=== PATIENT | female | born 1955 | race Caucasian/White ===

== ENCOUNTER → 2017-12-02 08:10 | Outpatient (CLI) | payer OTHER, SELFPAY ==
[2017-12-02 10:51] LABS: Anion Gap 10 (5-15); BUN 14 mg/dL (7-18); BUN/Creat Ratio 21.1 RATIO (10-20); Calcium,Total 8.9 mg/dL (8.5-10.1); Chloride 105 mmol/L (98-107); Cholesterol 187 mg/dL (200); Creatinine, Serum 0.66 mg/dL (0.55-1.02); EST Glomerular Filtration Rate 95 mL/min (>60); Est Glom Filt Rate - Afr Amer 115 mL/min (>60); Glucose 95 mg/dL (74-106); High Density Lipoprotein 52 mg/dL; Potassium 4.2 mmol/L (3.5-5.1); Sodium Level 140 mmol/L (136-145); Triglycerides 97 mg/dL; Very Low Density Lipoprotein 19 mg/dL (5-40)
[2017-12-02 12:30] LABS: Vitamin D,25 Hydroxy 18.2 ng/mL (29.95-100.01)
== END ==
PROVIDERS: Family Provider Family Medicine; PCP Family Medicine; Visit Provider Nurse Practitioner Adult Health
DX: E55.9 Vitamin D deficiency, unspecified (principal); Z13.220 Encounter for screening for lipoid disorders; Z13.1 Encounter for screening for diabetes mellitus
CPT/HCPCS: 36415; 80048; 80061; 82306

== ENCOUNTER → 2017-12-08 17:00 | Outpatient (CLI) | payer OTHER, SELFPAY ==
--- NOTE | 2017-12-08 16:45 | BI_ITS ---
MAMMOGRAPHY - BILATERAL SCREENING REASON FOR EXAM: Female, 62 years old. Routine annual screening examination. PERTINENT HISTORY: Non-contributory. TECHNIQUE: Digital bilateral breast segun (3D mammographic acquisition) in the CC and MLO projections. 2-D mediolateral oblique (MLO) and craniocaudad (CC) views of both breasts were obtained. CAD: Full Field Digital Mammography with Computer Added Detection was performed. COMPARISON: Comparison is made with prior study dated November 05, 2014 and September 18, 2010. FINDINGS: Breast Composition: There are scattered areas of fibroglandular density. There are no dominant masses or suspicious calcifications. No other significant abnormalities are identified. There has been no significant change since the prior study. BI/SCREENING MAMM (CAD), BILAT IMPRESSION: Stable bilateral screening mammogram. Yearly follow-up mammogram recommended. (A) ASSESSMENT CATEGORY: BIRADS Category 1: Negative. A letter regarding these results will be sent to the patient by the facility within 30 days. Approximately 10% of breast cancers are not detected by mammography. A normal mammogram should not delay biopsy of a clinically suspicious abnormality. [id number] Electronically Signed: Martínez Schmitz MD at 10:15 EDT Tel [phone], Service support ,
--- NOTE | 2017-12-08 17:00 | DT_ITS ---
This patient was seen during an EMR downtime December 05, 2017 - December 12, 2017. This patient may have a combination of paper and electronic documentation or all paper documentation. All documentation is viewable within the e-chart portion of Placed for each patient visit.
== END ==
PROVIDERS: Family Provider Family Medicine; PCP Family Medicine; Visit Provider Nurse Practitioner Adult Health
DX: Z12.31 Encounter for screening mammogram for malignant neoplasm of breast (principal)
CPT/HCPCS: 77063; 77067

== ENCOUNTER 2019-01-30 14:34 | Outpatient (RCR) | payer OTHER, SELFPAY ==
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
== END 2019-01-30 19:00 | disposition home or self-care (01) ==
LOC: PT 14:34
PROVIDERS: Family Provider Family Medicine; PCP Family Medicine; Referring Provider Nurse Practitioner Family; Visit Provider Nurse Practitioner Family
DX: S49.91XD Unspecified injury of right shoulder and upper arm, subsequent encounter (principal)
CPT/HCPCS: 97110; 97162

== ENCOUNTER → 2020-01-30 12:59 | Outpatient (CLI) | payer MEDICARE, SELFPAY ==
--- NOTE | 2020-01-30 13:30 | SP.MBSS_ITS ---
PRIMARY / SECONDARY DIAGNOSIS: dysphagia (R13.10) CURRENT DIET (SOLIDS): regular textures (IDDSI: 7) CURRENT DIET (LIQUIDS): thin liquid diets (IDDSI: 0) DENTITION: upper / lower partial MENTAL STATUS: intact RESPIRATORY STATUS: O2 via room air CURRENT FUNCTIONAL AMBULATION CATEGORY (FAC): 5 (ambulator- independent) REASON FOR REFERRAL: The Patient is a 64 year old female referred for a modified barium swallow (MBS) study to objectively assess the Patients oropharyngeal swallow function under fluoroscopy secondary to reported intermittent coughing with liquid intake (<1 per month) PREVIOUS MODIFIED BARIUM SWALLOW STUDY RESULTS: None ASSESSMENT PARAMETERS: The Patient participated in a Modified Barium Swallow (MBS) study on 01/30/2020. This study was recorded in the lateral view and images were sent to PACs for storage. Scoring was completed through each trial using the 8- point Penetration-Aspiration Scale (PAS) and the Videofluoroscopic Scale Score (VSS), and summarized via the Modified Barium Swallow Impairment Profile (MBSImP) and the Bolus Residue Scale (BRS), with severity scoring through the Dysphagia Severity Rating Scale (DSRS) and the Dysphagia Classification Scale (DCS), and recommended diet textures through the International Dysphagia Diet Standardisation Initiative (IDDSI) RESULTS OF THE EVALUATION: The Patient presents with mild oropharyngeal dysphagia (DSRS: 3) with grade II overt aspiration of thin liquids OBJECTIVE ASSESSMENT OF SWALLOW FUNCTION (QUANTITATIVE ? PER TRIAL): PENETRATION / ASPIRATION SCALE (SCOTT): 1 = does not enter airway 2 = enters airway/above vocal folds/ejected 3 = enters airway/above vocal folds/not ejected 4 = enters airway/contacts vocal folds/ejected 5 = enters airway/contacts vocal folds/not ejected 6 = enters airway/below vocal folds/ejected 7 = enters airway/below vocal folds/not ejected despite effort 8 = enters airway/below vocal folds/no effort VIDEOFLOROSCOPIC SCALE SCORE (SCOTT): Grade I = aspiration of material that has penetrated into the laryngeal vestibule, intact cough reflex Grade II = aspiration < 10 % of the bolus, intact cough reflex Grade III = aspiration of < 10 % of the bolus, reduced cough reflex or aspiration of > 10 % of the bolus, intact cough reflex Grade IV = aspiration of > 10 % of the bolus, reduced cough reflex PENETRATION / ASPIRATION SCALE (SCORE) WITH VIDEOFLOROSCOPIC SCALE SCORE: Thin liquid - 5 mL tsp.: 1 Thin liquids via cup (single sip): 1 Thin liquids via cup (single sip): 1 Thin liquids via cup (single sip): 1 Thin liquids via straw (sequential swallows): 1 Pudding via spoon: 1 Regular textured cookie: 1 Thin liquids via straw (sequential swallows): 2 Thin liquids via straw (chin tuck): 7 ? Grade II OBJECTIVE ASSESSMENT OF SWALLOW FUNCTION (QUANTITATIVE ? AGGREGATE): MODIFIED BARIUM SWALLOW IMPAIRMENT PROFILE (MBSImP) LABIAL SEAL: 0 (of 4) no labial escape TONGUE CONTROL: 2 (of 3) posterior escape < 50% BOLUS PREPARATION / MASTICATION: 0 (of 3) timely and efficient BOLUS TRANSPORT / LINGUAL MOTION: 0 (of 4) brisk tongue motion ORAL RESIDUE: 2 (of 4) residue collection on oral structures INITIATION OF PHARYNGEAL SWALLOW: 3 (of 4) pyriforms SOFT PALATE ELEVATION: 1 (of 4) trace column between soft palate & pharyngeal wall LARYNGEAL ELEVATION: 1 (of 3) partial superior movement / approximation ANTERIOR HYOID EXCURSION: 1 (of 2) partial movement EPIGLOTTIC MOVEMENT: 0 (of 2) complete inversion LARYNGEAL VESTIBULE CLOSURE: 0 (of 2) complete closure PHARYNGEAL STRIPPING WAVE: 0 (of 2) present / complete PE SEGMENT OPENIN (of 3) complete distension / duration; no obstruction TONGUE BASE RETRACTION: 1 (of 4) trace column of contrast PHARYNGEAL RESIDUE: 1 (of 4) trace residue ESOPHAGEAL BOLUS CLEARANCE: 0 (of 4) complete clearance; esophageal coating BOLUS RESIDUE SCALE (BRS): BRS SCORE: 1 (of 6) BRS SCORE DESCRIPTION: no residue OBJECTIVE ASSESSMENT OF SWALLOW FUNCTION (SEVERITY GRADING): DYSPHAGIA SEVERITY RATING SCALE (DSRS): DSRS CLASSIFICATION:2 (mild) DSRS CLASSIFICATION CHARACTERISTICS: oropharyngeal dysphagia present, which can be managed by specific swallow suggestions; slight modification in consistency of diet may be indicated. DYSPHAGIA CLASSIFICATION SCALE (DCS): DCS CLASSIFICATION: D0 (normal) DCS CLASSIFICATION CHARACTERISTICS: without stasis or food consistency restrictions OBJECTIVE ASSESSMENT OF SWALLOW FUNCTION (QUALITATIVE): ORAL PREPARATORY PHASE: competent bolus manipulation without fragmented swallowing (piecemeal deglutition); sufficient anterior oral containment during oral manipulation; preserved management of breathing / bolus formation without disrupted E ? S ? E pattern ORAL TRANSITIONAL PHASE: sufficient bolus transportation; sufficient oral clearance; consistent premature posterior bolus loss to the valleculae occasionally spilling into the pyriform sinus PHARYNGEAL PHASE: mild pharyngeal phase dyssynchrony combining with premature bolus loss presenting with an almost cogwheel transfer directly contributing to the sole aspiration event; appropriate hyolaryngeal excursion and laryngeal vestibule closure / pressure; sufficient / consistent laryngeal vestibule pressure generated to expel penetrated material; appropriate pharyngeal motility; appropriate velopharyngeal functioning ESOPHAGEAL PHASE: no obvious esophageal phase abnormalities observed. CONTRIBUTING / COMPLICATING FACTORS AND NOTABLE FINDINGS: sufficient / strong cued volitional cough intensity to expel penetrated material / laryngotracheal aspiration; non-obstructive cricopharyngeal bar located at the C-5 / C-6 level RESPONSE TO STRATEGIES: all deficits managed successfully with reduction in bolus rate / volume adjustments, INTERVENTION RECOMMENDATIONS AND CONSIDERATIONS: The Patient may benefit from skilled speech-language intervention targeting continued diet texture management and training / implementation of recommended compensatory strategies POST ASSESSMENT EDUCATION: The results and recommendations were discussed with the Patient immediately following MBS completion, with the Patient verbalizing understanding and agreement with all recommendations and education provided. DIET TEXTURE RECOMMENDATIONS: Will recommend a regular textured (IDDSI: 7), thin liquid diet (IDDSI: 0) diet RECOMMENDED COMPENSATORY STRATEGIES: Avoid mixed textures, reduced bolus volume / rate of ingestion, seated upright at 90 degrees during PO intake, remain upright for 30-60 minutes post meal (GERD precaution) IMAGE COUNT: [id number] Bahman Salinas M.A., AN-INSPECTION AND TESTING SUPERVISOR, CBIS MBSImP Certified, LSVT Certified [facility] Speech-Language Pathology Department Email: [email or web address]
== END ==
PROVIDERS: PCP Family Medicine; Referring Provider Family Medicine; Visit Provider Family Medicine
DX: R13.10 Dysphagia, unspecified (principal)
CPT/HCPCS: 74230; 92611

== ENCOUNTER → 2020-02-05 10:41 | Outpatient (CLI) | payer MEDICARE, SELFPAY ==
--- NOTE | 2020-02-05 10:43 | ECHOD_ITS ---
Reason For Study: Murmur Procedure This was a 2D Doppler, Color Flow transthoracic echocardiogram. The exam was of adequate technical quality. Exam performed in department. Left Ventricle Normal LV size. Left ventricular systolic function is normal. The estimated ejection fraction is 65 %. Diastolic function is indeterminate. No regional wall motion abnormalities noted. Right Ventricle Normal RV size. Normal systolic function. Atria Normal left atrium. Normal right atrium. No doppler evidence for ASD. Mitral Valve There is moderate mitral annular calcification. Mild diffuse mitral valve thickening. Mild (1+) mitral valve insufficiency. Tricuspid Valve Normal tricuspid valve. Trivial tricuspid valve insufficiency. Aortic Valve Trisinus/trileaflet aortic valve. Moderate focal aortic valve calcification. Mild to moderate aortic stenosis. Mild (1+) aortic valve insufficiency. Pulmonic Valve The pulmonic valve is not well visualized. Mild (1+) pulmonic valve insufficiency. Great Vessels Normal sized aortic root. Pericardium/Pleural No pericardial effusion. MMode/2D Measurements & Calculations LVIDd: 3.8 cm IVSd: 1.1 cm LVOT diam: 1.7 cm LVIDs: 1.7 cm LVPWd: 1.0 cm LVOT area: 2.3 cm2 RVDd: 2.8 cm FS: 54.9 % Ao root diam: 3.0 cm LAV(MOD-bp): 46.5 ml LA A4 area: 18.0 cm2 LA dimension: 3.6 cm LAV(MOD-bp) Indexed: 28.3 ml/m2 LAV(MOD-sp2): 40.6 ml LAV(MOD-sp4): 51.6 ml RA A4 area: 12.0 cm2 Time Measurements MV dec time: 0.27 sec Doppler Measurements & Calculations MV E max andrew: 108.3 cm/sec Lat Peak E' Andrew: 5.9 cm/sec Med Peak E' Andrew: 5.7 cm/sec MV A max andrew: 83.4 cm/sec E/E' lat: 18.2 E/E' med: 18.9 MV E/A: 1.3 MV V2 max: 111.3 cm/sec MV P1/2t max andrew: 111.9 cm/sec Ao V2 max: 256.2 cm/sec MV max P.0 mmHg MV P1/2t: 94.6 msec Ao max P.3 mmHg MV V2 mean: 64.9 cm/sec MV dec slope: 346.7 cm/sec2 Ao V2 mean: 167.0 cm/sec MV mean P.0 mmHg Ao mean P.0 mmHg MV V2 VTI: 36.9 cm MVA(P1/2t): 2.3 cm2 Ao V2 VTI: 57.4 cm MVA(VTI): 1.9 cm2 GENIE(I,D): 1.2 cm2 GENIE(V,D): 1.2 cm2 AI max andrew: 345.1 cm/sec LV V1 max: 134.4 cm/sec SV(LVOT): 68.7 ml AI max P.6 mmHg LV V1 max P.2 mmHg LV V1 mean P.5 mmHg AI dec slope: 178.3 cm/sec2 LV V1 mean: 86.2 cm/sec AI P1/2t: 567.0 msec LV V1 VTI: 29.9 cm PA V2 max: 79.0 cm/sec Interpretation Summary Left ventricular systolic function is normal. The estimated ejection fraction is 65 %. There is moderate mitral annular calcification. Mild diffuse mitral valve thickening. Mild (1+) mitral valve insufficiency. Trivial tricuspid valve insufficiency. Mild to moderate aortic stenosis. Mild (1+) aortic valve insufficiency. Mild (1+) pulmonic valve insufficiency. Diastolic function is indeterminate. Ordering Physician: Kip Hay Referring Physician: Kip Hay Performed By: Girish Marrero MD
== END ==
PROVIDERS: PCP Family Medicine; Referring Provider Family Medicine; Visit Provider Family Medicine
DX: R01.1 Cardiac murmur, unspecified (principal)
CPT/HCPCS: 93306

== ENCOUNTER → 2020-04-24 08:16 | Outpatient (CLI) | payer MEDICARE, SELFPAY ==
[2020-04-10 10:57] VITALS: BMI 26.3
[2020-04-24 10:22] LABS: Anion Gap 5 (5-15); BUN 21 mg/dL (7-18); BUN/Creat Ratio 35.7 RATIO (10-20); Calcium,Total 8.9 mg/dL (8.5-10.1); Chloride 110 mmol/L (98-107); Creatinine, Serum 0.59 mg/dL (0.55-1.02); EST Glomerular Filtration Rate 109 mL/min (>60); Est Glom Filt Rate - Afr Amer 131 mL/min (>60); Glucose 98 mg/dL (74-106); Potassium 4.1 mmol/L (3.5-5.1); Sodium Level 141 mmol/L (136-145)
[2020-04-24 10:26] LABS: Vitamin D,25 Hydroxy 33.8 ng/mL
== END ==
PROVIDERS: PCP Family Medicine; Referring Provider Family Medicine; Visit Provider Family Medicine
DX: Z00.00 Encounter for general adult medical examination without abnormal findings (principal); E55.9 Vitamin D deficiency, unspecified
CPT/HCPCS: 36415; 80048; 82306

== ENCOUNTER → 2021-03-18 07:37 | Outpatient (CLI) | payer MEDICARE, OTHER, SELFPAY ==
[2020-04-10 10:57] VITALS: BMI 26.3
--- NOTE | 2021-03-18 07:42 | ECHOD_ITS ---
Reason For Study: m Procedure This was a 2D Doppler, Color Flow transthoracic echocardiogram. The exam was of adequate technical quality. Exam performed in department. Left Ventricle Normal LV size. Left ventricular systolic function is normal. The estimated ejection fraction is 65 %. Diastolic function is indeterminate. No regional wall motion abnormalities noted. Right Ventricle Normal RV size. Normal systolic function. Atria The left atrium is mildly enlarged. Normal right atrium. No doppler evidence for ASD. Mitral Valve There is moderate mitral annular calcification. Mild diffuse mitral valve thickening. Mild (1+) mitral valve insufficiency. Tricuspid Valve Normal tricuspid valve. Trivial tricuspid valve insufficiency. Right ventricular systolic pressure estimated to be 33 mmHg. Aortic Valve Trisinus/trileaflet aortic valve. Moderate focal aortic valve calcification. Mild to moderate aortic stenosis. Mild (1+) aortic valve insufficiency. Pulmonic Valve The pulmonic valve is not well visualized. Mild (1+) pulmonic valve insufficiency. Great Vessels Normal sized aortic root. Pericardium/Pleural No pericardial effusion. MMode/2D Measurements & Calculations LVIDd: 3.6 cm IVSd: 0.78 cm LVOT diam: 1.7 cm LVIDs: 2.3 cm LVPWd: 0.76 cm LVOT area: 2.2 cm2 FS: 34.6 % Ao root diam: 2.8 cm LAV(MOD-bp): 49.0 ml EDV(MOD-sp4): 45.2 ml LAV(MOD-bp) Indexed: 29.9 ml/m2 ESV(MOD-sp4): 13.3 ml LAV(MOD-sp2): 48.8 ml EF(MOD-sp4): 70.6 % LAV(MOD-sp4): 46.7 ml EDV(MOD-sp2): 57.9 ml SV(MOD-sp4): 31.9 ml SV(MOD-sp2): 41.2 ml ESV(MOD-sp2): 16.7 ml EF(MOD-sp2): 71.2 % LA A4 area: 17.0 cm2 LA dimension(2D): 3.7 cm RA A4 area: 12.2 cm2 Doppler Measurements & Calculations MV E max andrew: 114.0 cm/sec Lat Peak E' Andrew: 6.3 cm/sec Med Peak E' Andrew: 5.9 cm/sec MV A max andrew: 75.6 cm/sec E/E' lat: 18.0 E/E' med: 19.2 MV E/A: 1.5 Ao V2 max: 262.1 cm/sec AI max andrew: 441.4 cm/sec LV V1 max: 122.1 cm/sec Ao max P.5 mmHg AI max P.0 mmHg LV V1 max P.0 mmHg Ao V2 mean: 178.6 cm/sec LV V1 mean P.3 mmHg Ao mean P.4 mmHg AI dec slope: 273.9 cm/sec2 LV V1 mean: 85.7 cm/sec Ao V2 VTI: 62.5 cm AI P1/2t: 472.1 msec LV V1 VTI: 29.5 cm GENIE(I,D): 1.0 cm2 GENIE(V,D): 1.0 cm2 SV(LVOT): 64.3 ml PA V2 max: 94.7 cm/sec PI end-d andrew: 108.2 cm/sec TR max andrew: 275.1 cm/sec TR max P.3 mmHg ECHO/Echo Complete Interpretation Summary Left ventricular systolic function is normal. The estimated ejection fraction is 65 %. The left atrium is mildly enlarged. There is moderate mitral annular calcification. Mild diffuse mitral valve thickening. Mild (1+) mitral valve insufficiency. Trivial tricuspid valve insufficiency. Mild to moderate aortic stenosis. Mild (1+) aortic valve insufficiency. Mild (1+) pulmonic valve insufficiency. Right ventricular systolic pressure estimated to be 33 mmHg. Diastolic function is indeterminate. Ordering Physician: Kip Forrester Referring Physician: KIP BERG Performed By: Rohini Cochran, RDCS, RVT
== END ==
PROVIDERS: PCP Family Medicine; Referring Provider Internal Medicine Cardiovascular Disease; Visit Provider Internal Medicine Cardiovascular Disease
DX: R01.1 Cardiac murmur, unspecified (principal); I35.2 Nonrheumatic aortic (valve) stenosis with insufficiency; I34.0 Nonrheumatic mitral (valve) insufficiency
CPT/HCPCS: 93306

== ENCOUNTER → 2022-03-30 | Outpatient (CLI) | payer MEDICARE, SELFPAY ==
--- NOTE | 2022-03-30 08:39 | ECHOD_ITS ---
Reason For Study: MURMUR Procedure This was a 2D Doppler, Color Flow transthoracic echocardiogram. The exam was of adequate technical quality. Exam performed in department. Left Ventricle Normal LV size. Left ventricular systolic function is normal. The estimated ejection fraction is 70 %. Diastolic function is indeterminate. No regional wall motion abnormalities noted. Right Ventricle Normal RV size. The right ventricle is normal in size, function, and thickness. Atria The left atrium is mildly enlarged. Normal right atrium. No doppler evidence for ASD. Mitral Valve There is moderate mitral annular calcification. Extension of the mitral annular calcification onto the base of the posterior mitral valve leaflet. Mild (1+) mitral valve insufficiency. Tricuspid Valve Normal tricuspid valve. Mild tricuspid valve insufficiency. Unable to estimate RV systolic pressure due to insufficient tricuspid regurgitant envelope. Aortic Valve Trisinus/trileaflet aortic valve. Moderate focal aortic valve calcification. Mild to moderate aortic stenosis. Mild (1+) aortic valve insufficiency. Pulmonic Valve The pulmonic valve is not well visualized. Mild (1+) pulmonic valve insufficiency. Great Vessels Normal sized aortic root. Pericardium/Pleural No pericardial effusion. MMode/2D Measurements & Calculations LVIDd: 3.9 cm IVSd: 1.0 cm LVOT diam: 2.0 cm LVIDs: 2.0 cm LVPWd: 1.00 cm LVOT area: 3.1 cm2 RVDd: 2.8 cm FS: 48.6 % Ao root diam: 2.8 cm LAV(MOD-bp): 51.4 ml LA A4 area: 17.7 cm2 LAV(MOD-bp) Indexed: 31.3 ml/m2 LAV(MOD-sp2): 47.0 ml LAV(MOD-sp4): 50.3 ml LA dimension(2D): 3.8 cm RA A4 area: 12.3 cm2 Time Measurements MV dec time: 0.20 sec Doppler Measurements & Calculations MV E max andrew: 106.5 cm/sec Lat Peak E' Andrew: 6.6 cm/sec Med Peak E' Andrew: 7.7 cm/sec MV A max andrew: 92.1 cm/sec E/E' lat: 16.0 E/E' med: 13.8 MV E/A: 1.2 MV dec slope: 536.7 cm/sec2 Ao V2 max: 297.6 cm/sec AI max andrew: 445.6 cm/sec Ao max P.1 mmHg AI max P.5 mmHg Ao V2 mean: 215.2 cm/sec AI dec slope: 357.1 cm/sec2 Ao mean P.6 mmHg AI P1/2t: 365.5 msec Ao V2 VTI: 66.1 cm GENIE(I,D): 1.4 cm2 GENIE(V,D): 1.3 cm2 LV V1 max: 123.3 cm/sec SV(LVOT): 91.6 ml PA V2 max: 113.3 cm/sec LV V1 max P.1 mmHg LV V1 mean P.7 mmHg LV V1 mean: 92.6 cm/sec LV V1 VTI: 29.4 cm ECHO/Echo Complete Interpretation Summary Left ventricular systolic function is normal. The estimated ejection fraction is 70 %. The left atrium is mildly enlarged. There is moderate mitral annular calcification. Extension of the mitral annular calcification onto the base of the posterior mi tral valve leaflet. Mild (1+) mitral valve insufficiency. Mild tricuspid valve insufficiency. Mild to moderate aortic stenosis. Mild (1+) aortic valve insufficiency. Mild (1+) pulmonic valve insufficiency. Unable to estimate RV systolic pressure due to insufficient tricuspid regurgita nt envelope. Diastolic function is indeterminate. Ordering Physician: Kip Forrester Referring Physician: Kip Hay Performed By: Kath Del Valle, RDCS, RVT
== END | disposition home or self-care (01) ==
LOC: CVS 08:39
PROVIDERS: PCP Family Medicine; Referring Provider Internal Medicine Cardiovascular Disease; Visit Provider Internal Medicine Cardiovascular Disease
DX: I35.2 Nonrheumatic aortic (valve) stenosis with insufficiency (principal)
CPT/HCPCS: 93306

== ENCOUNTER 2023-05-13 08:41 | Outpatient (CLI) | payer MEDICARE, SELFPAY ==
[2023-05-13 10:29] LABS: Vitamin D,25 Hydroxy 83.3 ng/mL
[2023-05-13 10:30] LABS: Anion Gap 10 (5-15); BUN 22 mg/dL (7-18); Chloride 104 mmol/L (98-107); Cholesterol 221 mg/dL (200); Creatinine, Serum 0.69 mg/dL (0.55-1.02); EST Glomerular Filtration Rate 90 mL/min (>60); Est Glom Filt Rate - Afr Amer 109 mL/min (>60); Glucose 102 mg/dL (74-106); High Density Lipoprotein 50 mg/dL; Potassium 4.1 mmol/L (3.5-5.1); Sodium Level 139 mmol/L (136-145); Triglycerides 124 mg/dL; Very Low Density Lipoprotein 25 mg/dL (5-40)
== END 2023-05-13 23:59 | disposition home or self-care (01) ==
LOC: MFPLAB 08:42
PROVIDERS: PCP Family Medicine; Visit Provider Family Medicine
DX: E55.9 Vitamin D deficiency, unspecified (principal); E78.00 Pure hypercholesterolemia, unspecified
CPT/HCPCS: 36415; 80048; 80061; 82306

== ENCOUNTER → 2023-06-09 | Outpatient (CLI) | payer MEDICARE, OTHER, SELFPAY ==
--- NOTE | 2023-06-09 12:50 | BI_ITS ---
MAMMOGRAPHY - BILATERAL SCREENING REASON FOR EXAM: Female, 68 years old. Routine annual screening examination. PERTINENT HISTORY: Non-contributory. TECHNIQUE: Digital bilateral breast araseli (3D mammographic acquisition) in the CC and MLO projections. 2-D mediolateral oblique (MLO) and craniocaudad (CC) views of both breasts were obtained. CAD: Full Field Digital Mammography with Computer Added Detection was performed. COMPARISON: Comparison is made with prior study dated December 08, 2017. FINDINGS: Breast Composition: There are scattered areas of fibroglandular density. There are no dominant masses or suspicious calcifications. No other significant abnormalities are identified. There has been no significant change since the prior study. BI/SCRN MAMM (CAD)W/ARASELI BILAT IMPRESSION: Stable bilateral screening mammogram. Yearly follow-up mammogram recommended. (A) ASSESSMENT CATEGORY: BIRADS Category 1: Negative. A letter regarding these results will be sent to the patient by the facility within 30 days. Approximately 10% of breast cancers are not detected by mammography. A normal mammogram should not delay biopsy of a clinically suspicious abnormality. [id number] Electronically Signed: Martínez Schmitz MD at 14:02 EST ,
--- NOTE | 2023-06-09 12:57 | BD_ITS ---
STUDY: DUAL ENERGY X-RAY ABSORPTIOMETRY / DXA REASON FOR EXAM: Female, 68 years old. Z78.0 TECHNIQUE: Bone Mineral Density (BMD) measurements of lumbar spine and bilateral hips were obtained. COMPARISON: Comparison is made with prior study dated October 15, 2010. FINDINGS: Lumbar Spine (L1-L4): g/cm2 (0.798) / T-score (-2.3) / Z-score (-0.2) Findings are suggestive of osteopenia with a high fracture risk. Left Femur Total: g/cm2 (0.831) / T-score (-0.9) / Z-score (0.5) Left Femoral Neck: g/cm2 (0.655) / T-score (-1.8) / Z-score (0.0) Right Femur Total: g/cm2 (0.818) / T-score (-1.0) / Z-score (0.4) Right Femoral Neck: g/cm2 (0.705) / T-score (-1.3) / Z-score (0.4) The T-Scores on the most recent prior examination were: Lumbar Spine (L1-L4): There has been worsening of bone density since the previous examination. Left Femur Total: which represents a worsening of 2%. Right Femur Total: which represents a worsening of 4.2%. BD/Dexa Bone Density Study IMPRESSION: The patient is considered osteopenic as outlined below according to World Severo Organization (WHO) criteria with a high fracture risk. There has been worsening of bone density since the previous examination. Reference Information: The T-score is the number of standard deviations above or below the standard which is normal for young adults at their peak bone mineral density. The World Health Organization (WHO) interprets the T-scores as follows: Above -1 Normal bone density Between -1 and -2.5 Osteopenia Equal to / or below -2.5 Osteoporosis As a practical clinical guideline, osteopenia may be graded as follows: Mild -1 through -1.5 Moderate -1.6 through -2.0 Severe -2.1 through -2.4 The Z-score is the number of standard deviations above or below age-matched controls. A Z-score of less than -1.5 would be considered abnormal. References: 1. NIH Osteoporosis and Related Bone Diseases www osteo.org 2. International Society for Clinical Densitometry www iscd.org 3. National Osteoporosis Foundation www nof.org Electronically Signed: Martínez Schmitz MD at 10:07 EST ,
== END | disposition home or self-care (01) ==
PROVIDERS: PCP Family Medicine; Visit Provider Family Medicine
DX: Z00.00 Encounter for general adult medical examination without abnormal findings (principal); Z12.31 Encounter for screening mammogram for malignant neoplasm of breast; Z78.0 Asymptomatic menopausal state
CPT/HCPCS: 77063; 77067; 77080

== ENCOUNTER → 2024-04-25 | Outpatient (CLI) | payer MEDICARE, OTHER, SELFPAY ==
--- OUTSIDE RECORDS SUMMARY | 2024-04-25 09:52 | XMS RPT_ITS | CCD ---
Author Organization [facility] Care Team Providers Care Licensed Embalmer Supervisor Name Role Phone NOHEMY, ELVIA Salazar Primary Care Unavailable NOHEMY, ELVIA Salazar Admitting Unavailable ANNIE BERG Consulting Unavailable NOHEMY, ELVIA Salazar Attending Unavailable PROVIDER, UNKNOWN Consulting Unavailable NOHEMY, ELVIA Salazar Admitting Unavailable NOHEMY, ELVIA Salazar Attending Unavailable NOHEMY, ELVIA Salazar Primary Care Unavailable Encounters Encounter Date Encounter Type Care Provider Facility Start: 10-06-2020 End: 10-06-2020 Patient encounter procedure [facility] Start: 09-05-2020 End: 09-05-2020 Patient encounter procedure [facility] Marie [facility] Payers Date Payer Category Payer Unknown [id number] 1955 Unknown [id number] Medicare [id number] Summary Purpose Family History No Family History Records Found Advance Directives No Advanced Directives Records Found Additional Source Comments INFORMATION SOURCE (unrecogn ized section and content) DATE CREATED AUTHOR 10/14/2020 [facility] FOR RECORDS PERTAINING TO PATIENTS WHO ARE OR HAVE BEEN ENROLLED IN A CHEMICAL DEPENDENCY/SUBSTANCEABUSE PROGRAM, SOME INFORMATION MAY BE OMITTED. This clinical summary was aggregated from multiple sources. Caution should be exercised in using it in the provision of clinical care. This summary normalizes information from multiple sources, and as a consequence, information in this document may materially change the coding, format and clinical context of patient data. In addition, data may be omitted in some cases. CLINICAL DECISIONS SHOULD BE BASED ON THE PRIMARY CLINICAL RECORDS. [facility]. provides no warranty or guarantee of the accuracy or completeness of information in this document.
[2024-04-25 10:52] LABS: ALB/GLOB Ratio 1.1 RATIO (0.9-2.4); AST(SGOT) 18 U/L (15-37); Alanine Aminotransfer ALT/SGPT 25 U/L (13-56); Albumin, Serum 3.7 g/dL (3.2-5.0); Alkaline Phosphatase 127 U/L (45-117); Anion Gap 6 (5-15); BUN 16 mg/dL (7-18); BUN/Creat Ratio 23.1 RATIO (10-20); Calcium,Total 9.2 mg/dL (8.5-10.1); Chloride 107 mmol/L (98-107); Cholesterol 221 mg/dL (200); Creatinine, Serum 0.69 mg/dL (0.55-1.02); EST Glomerular Filtration Rate 89 mL/min (>60); Est Glom Filt Rate - Afr Amer 108 mL/min (>60); Globulin 3.3 g/dL (2.2-4.2); Glucose 116 mg/dL (74-106); High Density Lipoprotein 63 mg/dL; Potassium 4.2 mmol/L (3.5-5.1); Sodium Level 140 mmol/L (136-145); Triglycerides 79 mg/dL; Very Low Density Lipoprotein 16 mg/dL (5-40)
== END | disposition home or self-care (01) ==
LOC: MFPLAB 09:15
PROVIDERS: PCP Family Medicine; Visit Provider Family Medicine
DX: E78.00 Pure hypercholesterolemia, unspecified (principal)
CPT/HCPCS: 36415; 80053; 80061

== ENCOUNTER → 2024-06-20 | Outpatient (CLI) | payer MEDICARE, OTHER, SELFPAY ==
--- NOTE | 2024-06-20 08:38 | ECHOD_ITS ---
Reason For Study: Nonrheumatic Procedure This was a 2D Doppler, Color Flow transthoracic echocardiogram. Exam performed in department. Left Ventricle Normal LV size. Left ventricular systolic function is normal. The left ventricular ejection fraction is 65 %. No regional wall motion abnormalities noted. Right Ventricle Normal RV size. Normal systolic function. Atria The left atrium is mildly enlarged. Normal right atrium. Mitral Valve There is moderate mitral annular calcification. Tricuspid Valve Normal tricuspid valve. Mild (1+) tricuspid valve insufficiency. Pulmonary artery systolic pressure is 25 mmHg. Aortic Valve Trisinus/trileaflet aortic valve. Moderate focal aortic valve calcification. Peak aortic valve gradient 46 mmHg. Mean aortic valve gradient 24 mmHg. Mild to moderate aortic stenosis. Mild (1+) aortic valve insufficiency. Pulmonic Valve Normal pulmonic valve. Great Vessels Normal aortic root. The pulmonary artery is normal size. Inferior vena cava collapse with respiration. Pericardium/Pleural No pericardial effusion. MMode/2D Measurements & Calculations LVIDd: 3.6 cm IVSd: 1.0 cm LVOT diam: 1.8 cm LVIDs: 2.2 cm LVPWd: 0.90 cm LVOT area: 2.6 cm2 RVDd: 3.2 cm FS: 38.7 % Ao root diam: 3.0 cm LAV(MOD-bp): 43.1 ml LVAd ap4: 18.2 cm2 LAV(MOD-bp) Indexed: 25.5 ml/m2 LVLd ap4: 6.4 cm LAV(MOD-sp2): 39.2 ml EDV(MOD-sp4): 43.4 ml LAV(MOD-sp4): 45.7 ml EDV(sp4-el): 44.0 ml LVAs ap4: 8.1 cm2 LVLs ap4: 4.7 cm ESV(MOD-sp4): 12.3 ml ESV(sp4-el): 11.8 ml EF(MOD-sp4): 71.6 % EF(sp4-el): 73.1 % SV(MOD-sp4): 31.1 ml SV(sp4-el): 32.2 ml LA A4 area: 16.3 cm2 SI(MOD-sp4): 18.4 ml/m2 LA dimension(2D): 3.7 cm RA A4 area: 10.4 cm2 TAPSE: 2.1 cm Time Measurements MV dec time: 0.20 sec Doppler Measurements & Calculations MV E max andrew: 123.8 cm/sec Lat Peak E' Andrew: 7.6 cm/sec Med Peak E' Andrew: 7.1 cm/sec MV A max andrew: 99.5 cm/sec E/E' lat: 16.2 E/E' med: 17.4 MV E/A: 1.2 MV V2 max: 137.1 cm/sec MV P1/2t max andrew: 136.8 cm/sec Ao V2 max: 339.7 cm/sec MV max P.5 mmHg MV P1/2t: 74.2 msec Ao max P.2 mmHg MV V2 mean: 80.3 cm/sec Ao V2 mean: 229.6 cm/sec MV mean P.0 mmHg MV dec slope: 540.2 cm/sec2 Ao mean P.2 mmHg MV V2 VTI: 38.8 cm MVA(P1/2t): 3.0 cm2 Ao V2 VTI: 77.1 cm AV (velocity ratio): 0.38 MVA(VTI): 2.0 cm2 GENIE(I,D): 0.99 cm2 GENIE(V,D): 0.96 cm2 AI max andrew: 417.1 cm/sec LV V1 max: 127.2 cm/sec SV(LVOT): 76.3 ml AI max P.6 mmHg LV V1 max P.5 mmHg LV V1 mean P.8 mmHg AI dec slope: 329.2 cm/sec2 LV V1 mean: 92.2 cm/sec AI P1/2t: 371.1 msec LV V1 VTI: 29.6 cm PA V2 max: 102.9 cm/sec TR max andrew: 229.3 cm/sec TR max P.0 mmHg ECHO/Echo Complete Interpretation Summary Normal LV size. Left ventricular systolic function is normal. The left ventricular ejection fraction is 65 %. There is moderate mitral annular calcification. Moderate focal aortic valve calcification. Mean aortic valve gradient 24 mmHg. Mild to moderate aortic stenosis. Ordering Physician: Gi Melgar Referring Physician: Gi Melgar Performed By: Anatoly Loomis RCS
== END | disposition home or self-care (01) ==
LOC: CVS 08:37
PROVIDERS: PCP Family Medicine; Referring Provider Nurse Practitioner Gerontology; Visit Provider Nurse Practitioner Gerontology
DX: I35.2 Nonrheumatic aortic (valve) stenosis with insufficiency (principal)
CPT/HCPCS: 93306